=== PATIENT | female | born 1955 | race Caucasian/White ===

== ENCOUNTER 2020-07-15 09:13 | Outpatient (REF) | payer BC, SELFPAY ==
[2020-07-15 10:03] LABS: MANUAL DIFF FLAG NO
[2020-07-15 10:20] LABS: Basophils Percent Auto 0.4 % (0-2); Eosinophils Absolute Auto 0.2 X10*3/uL (0.0-0.4); Eosinophils Percent Auto 3.1 % (0-4); Hematocrit 39.5 % (37-47); Hemoglobin 13.3 g/dl (12.0-16.0); Imm Gran Abs Auto 0.01 X10*3/uL (0.00-0.03); Imm Gran Pct Auto 0.2 % (0.0-0.4); Immature Retic Fraction 7.5 % (3.0-15.9); Lymphocytes Absolute Auto 1.5 X10*3/uL (1.2-4.9); Lymphocytes Percent Auto 26.3 % (20-40); Mean Corpuscular HGB Conc 33.7 g/dl (31.0-35.0); Mean Corpuscular Volume 95.2 fL (80-98); Monocytes Absolute Auto 0.4 X10*3/uL (0.1-1.2); Monocytes Percent Auto 7.4 % (2-11); Neutrophils Absolute Auto 3.5 X10*3/uL (2.0-8.3); Neutrophils Percent Auto 62.6 % (45-73); Platelet Count 273 X10*3/uL (160-400); Red Blood Count 4.15 X10*6/uL (4.20-5.50); Red Cell Distribution Width 12.1 % (11.0-16.0); Retic HGB Equivalent 35.4 pg (30.0-35.0); Reticulocyte Percent 1.1 % (0.5-1.8); Reticulocytes Absolute 0.047 X10*6/uL (0.026-0.095); White Blood Count 5.5 X10*3/uL (4.8-10.8)
[2020-07-15 10:34] LABS: Estimated Average Glucose 114 mg/dL; Hemoglobin A1c % 5.6 %
[2020-07-15 11:03] LABS: Alanine Aminotransferase 37 U/L (0-31); Albumin Level 4.3 g/dL (3.5-5.0); Alkaline Phosphatase 54 U/L (39-117); Anion Gap 13 (12-20); Aspartate Amino Transferase 25 U/L (5-31); Bilirubin Total 1.7 mg/dL (0.0-1.0); Blood Urea Nitrogen 11 mg/dL (9-16); Calcium 9.3 mg/dL (8.4-10.2); Carbon Dioxide 29 mmol/L (22-29); Chloride 104 mmol/L (96-108); Cholesterol 221 mg/dL; Estimated Glomerular Filt Rate > 60; Glucose Random 106 mg/dL (60-115); HDL Cholesterol 46 mg/dL; Iron 122 mcg/dL (30-160); LDL Cholesterol Calculated 145 mg/dl; Percent Iron Saturation 51 % (15-50); Potassium 4.7 mmol/L (3.3-5.1); Sodium 141 mmol/L (135-145); Total Iron Binding Capacity 241 mcg/dL (228-428); Total Protein 6.7 g/dL (6.5-8.0); Triglycerides 154 mg/dL; Unsaturated Iron Binding 119 ug/dL
[2020-07-15 11:13] LABS: Ferritin 324 ng/mL (10-250); Free T4 (Free Thyroxine) 0.98 ng/dL (0.71-1.85); Thyroid Stimulating Hormone 1.72 uIU/mL (0.32-4.0); Vitamin D 25-OH Total 35.7 ng/mL (>30)
[2020-07-15 11:49] LABS: Folate > 20.0 ng/mL (> or = 4.0); Vitamin B12 960 pg/mL (200-900)
== END 2020-07-15 09:14 | disposition home or self-care (01) ==
LOC: HO.10HDL 09:13
PROVIDERS: Visit Provider Internal Medicine
DX: E80.6 Other disorders of bilirubin metabolism (principal); R73.02 Impaired glucose tolerance (oral); E78.00 Pure hypercholesterolemia, unspecified
CPT/HCPCS: 36415; 80053; 80061; 82306; 82607; 82728; 82746; 83036; 83540; 84439; 84443; 85025; 85045

== ENCOUNTER 2020-07-20 07:35 | Outpatient (REF) | payer BC, SELFPAY ==
--- NOTE | ~2020-07-20 | US_ITS ---
EXAMINATION: US ABDOMEN LIMITED CLINICAL INFORMATION: Other specified abnormal findings of blood chemistry. COMPARISON: None TECHNIQUE: Real-time imaging of the right upper quadrant abdominal viscera. FINDINGS: PANCREAS: Normal. LIVER: Liver echotexture is increased. The liver is normal in size. The liver contour is normal. No focal hepatic lesion. There is no intrahepatic biliary duct dilatation seen. GALLBLADDER: Normal. The gallbladder is physiologically distended without evidence of stones, sludge, polyps, wall thickening or pericholecystic fluid. COMMON BILE DUCT: Normal in caliber measuring 0.3 cm in diameter. RIGHT KIDNEY: Normal. No hydronephrosis. No renal calculi or focal parenchymal lesions. The kidney measures 10.7 cm in maximum dimension. FREE FLUID: None. US/US abdomen limited IMPRESSION: Echogenic liver. Otherwise unremarkable exam.
== END 2020-07-20 07:36 | disposition home or self-care (01) ==
LOC: HO.US 07:35
PROVIDERS: Visit Provider Internal Medicine
DX: E80.6 Other disorders of bilirubin metabolism (principal); R79.89 Other specified abnormal findings of blood chemistry
CPT/HCPCS: 76705

== ENCOUNTER 2020-11-27 08:19 | Emergency (ER) | payer BC, SELFPAY ==
--- NOTE | ~2020-11-27 | CT_ITS ---
EXAMINATION: CT ANGIOGRAM OF THE CHEST WITH AND WITHOUT CONTRAST (CT PULMONARY ANGIOGRAM FOR PE) CLINICAL INFORMATION: Reason for Exam elevated ddimer, COVID positive, dyspnea COMPARISON: None TECHNIQUE: Prior to contrast administration, noncontrast localization images were obtained. Subsequently, multidetector volumetric imaging was performed from the thoracic inlet to below the diaphragms following the administration of 80 mL Omnipaque 350 intravenous contrast. No contrast reaction reported Sagittal, coronal, and MIP oblique sagittal reformatted images were obtained on the CT workstation, uploaded to PACS, and reviewed. This CT examination was performed using dose optimization techniques as appropriate, variously including the following: *Automated exposure control *Adjustment of mA and/or kV according to patient size (this includes techniques or standardized protocols for targeted exams where dose is matched to indication/reason for exam; i.e. extremities or head) *Use of iterative reconstruction technique Total exam dose-length product 179 mGy-cm FINDINGS: QUALITY OF STUDY/CONTRAST BOLUS: Satisfactory. PULMONARY ARTERIES: No central or segmental pulmonary emboli. THORACIC AORTA: No aneurysm or dissection. LUNG: The lungs are well-expanded with bilateral patchy opacities in both upper lobes dependent segments and both lower lobes dependent segment suggestive of inflammatory or infectious etiology. No consolidation or nodules visualized. PLEURA: No pleural effusion or pneumothorax. MEDIASTINUM: The thyroid lobes are symmetric and normal. The central trachea and bronchi widely patent. No evidence of septal bowing or right heart strain. CHEST WALL/AXILLA: No axillary or internal mammary lymphadenopathy. OSSEOUS STRUCTURES: No lytic or sclerotic process seen. UPPER ABDOMEN: Visualized liver, spleen or partially visualized pancreas and bilateral adrenal glands are unremarkable. No reflux of contrast into the hepatic veins to suggest elevated right heart pressures. CT/CT angio chest PE protocol IMPRESSION: No evidence of PE. No evidence of aortic dissection. Diffuse groundglass changes in the dependent portions of both upper and lower lobe appears to inflammatory infectious etiology. No abnormal mediastinal lymphadenopathy. VTE: Negative
--- NOTE | ~2020-11-27 | XR_ITS ---
EXAMINATION: XR CHEST CLINICAL INFORMATION: Weakness COMPARISON: Chest 07/11/2007 TECHNIQUE: Frontal view of the chest was obtained. FINDINGS: The lungs are well-expanded with dense bandlike atelectasis right midlung. Rest lungs are clear and expanded. Heart size and pulmonary vascularity is normal. No gross bony abnormality seen. XR/XR chest 1V IMPRESSION: Dense atelectasis or scarring in right midlung. Rest of the lungs are clear.
--- NOTE | 2020-11-27 08:23 | ED_ITS ---
HPI - SOB/Dyspnea General Chief Complaint: Upper Respiratory Symptoms Stated Complaint: covid sob Time Seen by Provider: 11/27/20 08:22 Source: patient Mode of arrival: ambulatory Limitations: no limitations History of Present Illness HPI Narrative: 65 yo female denies any PMH comes in with 11 days of not feeling well after being exposed to her daughter and son in law who both tested positive for COVID. She states I just don't fell well, it's been long enough. Her main complaint is nausea and lack of appetite because nothing tastes good. Pertinent past history: other (COVID exposures) Onset (ago): day(s) (11) Context: other (COVID exposure) Timing: constant Severity: moderate Exacerbating factors: exertion (she can walk to her bathroom but she feels tired) Relieving factors: nothing Associated symptoms: cough, nausea/vomiting and other (malaise / anorexia) Treatment prior to arrival: none Related Data Home Medications Medication Instructions Recorded Confirmed Oscal PO 07/13/20 apple cider vinegar 300 mg tablet mg PO 07/13/20 07/13/20 ascorbate calcium (vitamin C) 500 500 mg PO DAILY 07/13/20 07/13/20 mg tablet coffee extract 400 mg capsule mg PO 07/13/20 07/13/20 (Green Coffee Horton) cyanocobalamin (vitamin B-12) 1,000 mcg PO DAILY 07/13/20 07/13/20 1,000 mcg capsule ferrous sulfate 325 mg (65 mg 325 mg PO DAILY 07/13/20 07/13/20 iron) tablet (Feosol) multivitamin (One-A-Day Essential) 1 tab PO DAILY 07/13/20 07/13/20 Previous Rx's Medication Instructions Recorded dexamethasone 6 mg tablet 6 mg PO DAILY 6 Days #6 tab 11/27/20 ondansetron 4 mg disintegrating 4 mg PO Q8H PRN #20 tab 11/27/20 tablet Allergies Allergy/AdvReac Type Severity Reaction Status Date / Time No Known Allergies Allergy Unverified 01/02/20 14:36 Review of Systems Review of Systems: Constitutional : No Weight loss, No Fever, No Chills, pos Fatigue, pos Malaise ENT/Mouth : No sore throat, No Rhinorrhea Eyes: No Eye Pain, No Swelling, No Redness Cardiovascular : No Chest Pain, No SOB, No Dyspnea on Exertion, No Orthopnea, No Edema, No Palpitations Respiratory : pos Cough, No Sputum, No Wheezing Gastrointestinal : pos Nausea, pos Vomiting, No Diarrhea, No Constipation, No abdominal Pain, No Hematochezia, No Melena Genitourinary : No Dysuria, No Urinary Frequency, No Hematuria, Musculoskeletal : No joint pain, No Myalgias, No Joint Swelling Skin : No Skin Lesions, No rash Neuro : pos Weakness, No Numbness, No Dizziness, No Headache Psych : No Anxiety/Panic, No Depression Heme/Lymph: No Bruising, No Bleeding,No Lymphadenopathy Endocrine : No Polyuria, No Polydipsia All other systems reviewed and are negative [facility] Past Medical History Attestation statement: The following information was validated with the patient. Medical History Fracture of distal end of fibula Hypercholesterolemia Impaired glucose tolerance Overweight Surgical History History of mandibular surgery Family History Family History (Updated 07/13/20 @ 09:07 by Katlyn Izquierdo CMA) Father No problems noted. Mother No problems noted. Brother Prostate cancer Social History Social History Alcohol intake: never Patient Tobacco Use Status: Never used Tobacco Use of substances other than those prescribed or required for medical reasons: No Advance Directives: No Advance Directives Information Provided: No Physical Exam Vital Signs: Vital Signs: Last Vital Signs Temp 98.0 F 11/27/20 13:07 Pulse 60 11/27/20 13:07 Resp 15 11/27/20 13:07 BP 114/67 11/27/20 13:07 Pulse Ox 94 11/27/20 13:07 Body Mass Index 26.4 Appearance: Alert. Oriented X3. No acute distress. Eyes: Pupils equal, round and reactive to light. ENT: Pharynx normal. Neck: Normal inspection. Neck supple. CVS: Normal heart rate and rhythm. Pulses normal. Respiratory: No respiratory distress. Breath sounds normal. Abdomen: Soft and nontender. Skin: Skin warm and dry. Normal skin color. Normal skin turgor. Extremities: No lower extremity edema. No calf ttp Neuro: Oriented X 3. No motor deficit. No sensory deficit. Course Course Course Narrative: + ddimer higher than expected CTA ordered no PE will attempt ambulation trial no hypoxia O2 sat ambulating was 96%, she is eating in the department, no supplemental O2 can be DC home MDM - SOB/Dyspnea MDM Narrative Medical decision making narrative: 65 yo female denies any PMH comes in with 11 days of not feeling well after being exposed to her daughter and son in law who both tested positive for COVID. At this time her O2 sat ranges from 92-95% on RA. She has no complaints of chest pain will obtain COVID risk labs, CXR. Seems atypical for PE given lack of chest pain. Will need ambulation trial as well. Patient was not vaccinated. Lab Data Result diagrams: 11/27/20 09:23 11/27/20 09:23 Labs: Lab Results 11/27/20 11/27/20 11/27/20 Range/Units 09:22 09:23 09:23 WBC 6.4 (4.8-10.8) X10*3/uL RBC 4.12 L (4.20-5.50) X10*6/uL Hgb 13.1 (12.0-16.0) g/dl Hct 37.5 (37-47) % MCV 91.0 (80-98) fL MCH 31.8 (27.0-33.0) pg MCHC 34.9 (31.0-35.0) g/dl RDW 12.4 (11.0-16.0) % Plt Count 261 (160-400) X10*3/uL MPV 11.7 (9.4-12.3) fL Immature Gran % (Auto) 0.5 H (0.0-0.4) % Neut % (Auto) 86.3 H (45-73) % Lymph % (Auto) 8.6 L (20-40) % Porter % (Auto) 4.6 (2-11) % Eos % (Auto) 0.0 (0-4) % Baso % (Auto) 0.0 (0-2) % Lymph # (Auto) 0.6 L (1.2-4.9) X10*3/uL Porter # (Auto) 0.3 (0.1-1.2) X10*3/uL Eos # (Auto) 0.0 (0.0-0.4) X10*3/uL Baso # (Auto) 0.0 (0.0-0.2) X10*3/uL Abs Immat Gran (auto) 0.03 (0.00-0.03) X10*3/uL Absolute Neuts (auto) 5.5 (2.0-8.3) X10*3/uL Absolute Nucleated RBC 0.000 (0.0-0.012) X10*3/uL Nucleated RBC % (auto) 0.0 (0.0-0.2) /100WBC PT (9.9-13.0) SEC INR (0.9-1.1) APTT (24.1-38.0) SEC D-Dimer NG/ML Sodium 133 L (135-145) mmol/L Potassium 4.6 (3.3-5.1) mmol/L Chloride 98 (96-108) mmol/L Carbon Dioxide 25 (22-29) mmol/L Anion Gap 15 (12-20) BUN 13 (9-16) mg/dL Creatinine 0.67 (0.5-1.4) mg/dL Estim Creat Clear Calc 81.0 Estimated GFR > 60 Random Glucose 106 (60-115) mg/dL Lactic Acid (0.5-2.0) mmol/L Calcium 8.5 D (8.4-10.2) mg/dL Magnesium (1.6-2.6) mg/dL Ferritin (10-250) ng/mL Total Bilirubin (0.0-1.0) mg/dL Direct Bilirubin (0.0-0.5) mg/dL AST (5-31) U/L ALT (0-31) U/L Alkaline Phosphatase (39-117) U/L Lactate Dehydrogenase (122-220) U/L Total Creatine Kinase 38 (26-140) U/L Troponin I High Sens 7.3 (<3.5-17.0) ng/L C-Reactive Protein 7.74 H (< or = 0.50) mg/dL Total Protein (6.5-8.0) g/dL Albumin (3.5-5.0) g/dL COVID-19 (FRANKIE) (Negative) COVID-19 Clin Com 11/27/20 11/27/20 11/27/20 Range/Units 09:23 09:23 09:23 WBC (4.8-10.8) X10*3/uL RBC (4.20-5.50) X10*6/uL Hgb (12.0-16.0) g/dl Hct (37-47) % MCV (80-98) fL MCH (27.0-33.0) pg MCHC (31.0-35.0) g/dl RDW (11.0-16.0) % Plt Count (160-400) X10*3/uL MPV (9.4-12.3) fL Immature Gran % (Auto) (0.0-0.4) % Neut % (Auto) (45-73) % Lymph % (Auto) (20-40) % Porter % (Auto) (2-11) % Eos % (Auto) (0-4) % Baso % (Auto) (0-2) % Lymph # (Auto) (1.2-4.9) X10*3/uL Porter # (Auto) (0.1-1.2) X10*3/uL Eos # (Auto) (0.0-0.4) X10*3/uL Baso # (Auto) (0.0-0.2) X10*3/uL Abs Immat Gran (auto) (0.00-0.03) X10*3/uL Absolute Neuts (auto) (2.0-8.3) X10*3/uL Absolute Nucleated RBC (0.0-0.012) X10*3/uL Nucleated RBC % (auto) (0.0-0.2) /100WBC PT 12.0 (9.9-13.0) SEC INR 1.1 (0.9-1.1) APTT 29.4 (24.1-38.0) SEC D-Dimer 725 NG/ML Sodium (135-145) mmol/L Potassium (3.3-5.1) mmol/L Chloride (96-108) mmol/L Carbon Dioxide (22-29) mmol/L Anion Gap (12-20) BUN (9-16) mg/dL Creatinine (0.5-1.4) mg/dL Estim Creat Clear Calc Estimated GFR Random Glucose (60-115) mg/dL Lactic Acid 1.8 (0.5-2.0) mmol/L Calcium (8.4-10.2) mg/dL Magnesium 2.1 (1.6-2.6) mg/dL Ferritin 2171 H (10-250) ng/mL Total Bilirubin 1.0 (0.0-1.0) mg/dL Direct Bilirubin 0.5 (0.0-0.5) mg/dL AST 33 H (5-31) U/L ALT 42 H (0-31) U/L Alkaline Phosphatase 78 D (39-117) U/L Lactate Dehydrogenase 276 H (122-220) U/L Total Creatine Kinase (26-140) U/L Troponin I High Sens (<3.5-17.0) ng/L C-Reactive Protein (< or = 0.50) mg/dL Total Protein 6.5 (6.5-8.0) g/dL Albumin 3.9 (3.5-5.0) g/dL COVID-19 (FRANKIE) (Negative) COVID-19 Clin Com 11/27/20 Range/Units 09:25 WBC (4.8-10.8) X10*3/uL RBC (4.20-5.50) X10*6/uL Hgb (12.0-16.0) g/dl Hct (37-47) % MCV (80-98) fL MCH (27.0-33.0) pg MCHC (31.0-35.0) g/dl RDW (11.0-16.0) % Plt Count (160-400) X10*3/uL MPV (9.4-12.3) fL Immature Gran % (Auto) (0.0-0.4) % Neut % (Auto) (45-73) % Lymph % (Auto) (20-40) % Porter % (Auto) (2-11) % Eos % (Auto) (0-4) % Baso % (Auto) (0-2) % Lymph # (Auto) (1.2-4.9) X10*3/uL Porter # (Auto) (0.1-1.2) X10*3/uL Eos # (Auto) (0.0-0.4) X10*3/uL Baso # (Auto) (0.0-0.2) X10*3/uL Abs Immat Gran (auto) (0.00-0.03) X10*3/uL Absolute Neuts (auto) (2.0-8.3) X10*3/uL Absolute Nucleated RBC (0.0-0.012) X10*3/uL Nucleated RBC % (auto) (0.0-0.2) /100WBC PT (9.9-13.0) SEC INR (0.9-1.1) APTT (24.1-38.0) SEC D-Dimer NG/ML Sodium (135-145) mmol/L Potassium (3.3-5.1) mmol/L Chloride (96-108) mmol/L Carbon Dioxide (22-29) mmol/L Anion Gap (12-20) BUN (9-16) mg/dL Creatinine (0.5-1.4) mg/dL Estim Creat Clear Calc Estimated GFR Random Glucose (60-115) mg/dL Lactic Acid (0.5-2.0) mmol/L Calcium (8.4-10.2) mg/dL Magnesium (1.6-2.6) mg/dL Ferritin (10-250) ng/mL Total Bilirubin (0.0-1.0) mg/dL Direct Bilirubin (0.0-0.5) mg/dL AST (5-31) U/L ALT (0-31) U/L Alkaline Phosphatase (39-117) U/L Lactate Dehydrogenase (122-220) U/L Total Creatine Kinase (26-140) U/L Troponin I High Sens (<3.5-17.0) ng/L C-Reactive Protein (< or = 0.50) mg/dL Total Protein (6.5-8.0) g/dL Albumin (3.5-5.0) g/dL COVID-19 (FRANKIE) Positive A (Negative) COVID-19 Clin Com See Note ECG Data Attestation: I personally reviewed and interpreted this ECG as follows: ECG interpretation date: 11/27/20 ECG interpretation time: 09:52 Interpretation: Rate: 70 Rhythm: NSR [place]: left, LVH Normal P waves. Normal DERRICK. Normal QRS complex. ST T wave : nonspecific, no LOIDA qTC: normal prior studies: no acute ischemia The study has been interpreted contemporaneously by me. . Discharge Plan Discharge Clinical Impression: COVID-19, Weakness Patient Disposition: Home, Self-Care Instructions: COVID-19 (Coronavirus Disease 2019) (ED) Additional Instructions: return to ED for any worsening symptoms or concerns wear a mask and quarantine yourself, if you become so short of breath you cannot ambulate to the bathroom please return your CT scan shows no blood clot, you have some patchy areas in your lungs with COVID disease but your walking room air O2 level was 96%, please monitor your breathing Prescriptions: New ondansetron 4 mg tablet,disintegrating 4 mg PO Q8H PRN (Reason: nausea and vomiting) Qty: 20 RF: 0 dexamethasone 6 mg tablet 6 mg PO DAILY 6 Days Qty: 6 RF: 0 No Action ascorbate calcium (vitamin C) 500 mg tablet 500 mg PO DAILY RF: 0 ferrous sulfate [Feosol] 325 mg (65 mg iron) tablet 325 mg PO DAILY RF: 0 multivitamin [One-A-Day Essential] Tablet 1 tab PO DAILY RF: 0 cyanocobalamin (vitamin B-12) 1,000 mcg capsule 1,000 mcg PO DAILY RF: 0 Oscal PO RF: 0 Green Coffee Horton 400 mg capsule PO RF: 0 apple cider vinegar 300 mg tablet PO RF: 0
[2020-11-27 08:44] VITALS: BP 135/71; PULSE 71; RESP 18; TEMP 37.9; O2SAT 94; BMI 26.4
--- NOTE | 2020-11-27 08:50 | ECG_ITS ---
Test Reason : N/V Blood Pressure : / mmHG Vent. Rate : 070 BPM Atrial Rate : 070 BPM P-R Int : 168 ms QRS Dur : 086 ms QT Int : 396 ms P-R-T Axes : 031 -12 000 degrees QTc Int : 427 ms Normal sinus rhythm Voltage criteria for left ventricular hypertrophy Abnormal ECG No previous ECGs available Referred By: Sophie Blanc Electronically Signed By:JIMMIE ZUNIGA
[2020-11-27 08:55] VITALS: PULSE 76; O2SAT 92
[2020-11-27 08:59] VITALS: BP 143/71; PULSE 73; RESP 24; O2SAT 94
[2020-11-27 09:33] LABS: MANUAL DIFF FLAG NO
[2020-11-27 09:34] LABS: Hematocrit 37.5 % (37-47); Hemoglobin 13.1 g/dl (12.0-16.0); Imm Gran Abs Auto 0.03 X10*3/uL (0.00-0.03); Imm Gran Pct Auto 0.5 % (0.0-0.4); Lymphocytes Absolute Auto 0.6 X10*3/uL (1.2-4.9); Lymphocytes Percent Auto 8.6 % (20-40); Mean Corpuscular HGB Conc 34.9 g/dl (31.0-35.0); Mean Corpuscular Hemoglobin 31.8 pg (27.0-33.0); Mean Platelet Volume 11.7 fL (9.4-12.3); Monocytes Absolute Auto 0.3 X10*3/uL (0.1-1.2); Monocytes Percent Auto 4.6 % (2-11); Neutrophils Absolute Auto 5.5 X10*3/uL (2.0-8.3); Neutrophils Percent Auto 86.3 % (45-73); Platelet Count 261 X10*3/uL (160-400); Red Blood Count 4.12 X10*6/uL (4.20-5.50); Red Cell Distribution Width 12.4 % (11.0-16.0); White Blood Count 6.4 X10*3/uL (4.8-10.8)
[2020-11-27 09:39] LABS: INTERNATIONAL NORM RATIO 1.1 (0.9-1.1)
[2020-11-27 09:42] LABS: D Dimer 725 NG/ML; Partial Thromboplastin Time 29.4 SEC (24.1-38.0)
[2020-11-27 09:43] VITALS: BP 124/66; PULSE 70; RESP 22; TEMP 38.1; O2SAT 94
[2020-11-27 09:43] LABS: COVID-19 Test Positive (Negative)
[2020-11-27] MEDS: Acetaminophen 325 MG TABLET 650 MG PO (09:44)
[2020-11-27] MEDS: ondansetron HCL 4 MG/2 ML VIAL IVPUSH (09:44)
[2020-11-27 09:52] LABS: Lactic Acid 1.8 mmol/L (0.5-2.0)
[2020-11-27 09:59] LABS: Alanine Aminotransferase 42 U/L (0-31); Albumin Level 3.9 g/dL (3.5-5.0); Alkaline Phosphatase 78 U/L (39-117); Aspartate Amino Transferase 33 U/L (5-31); Bilirubin Direct 0.5 mg/dL (0.0-0.5); Magnesium 2.1 mg/dL (1.6-2.6); Total Protein 6.5 g/dL (6.5-8.0)
[2020-11-27 10:01] LABS: Anion Gap 15 (12-20); Blood Urea Nitrogen 13 mg/dL (9-16); C Reactive Protein 7.74 mg/dL (< or = 0.50); Calcium 8.5 mg/dL (8.4-10.2); Carbon Dioxide 25 mmol/L (22-29); Chloride 98 mmol/L (96-108); Estimated Glomerular Filt Rate > 60; Glucose Random 106 mg/dL (60-115); Potassium 4.6 mmol/L (3.3-5.1); Sodium 133 mmol/L (135-145)
[2020-11-27 10:02] LABS: Troponin-I High Sensitivity 7.3 ng/L (<3.5-17.0)
[2020-11-27 10:04] LABS: Lactate Dehydrogenase 276 U/L (122-220)
[2020-11-27 10:50] VITALS: BP 113/60; PULSE 66; RESP 19; TEMP 37.4; O2SAT 93
[2020-11-27 11:00] LABS: Ferritin 2171 ng/mL (10-250)
[2020-11-27] MEDS: iohexoL 350 MG/ML 100 ML INFUS..BTL 65 ML IV (12:30)
[2020-11-27] MEDS: iohexoL 350 MG/ML 100 ML INFUS..BTL IV (12:37)
[2020-11-27 13:07] VITALS: BP 114/67; PULSE 60; RESP 15; TEMP 36.7; O2SAT 94
[2020-11-27] MEDS: dexAMETHasone 6 MG TABLET PO (13:52)
[2020-11-28 07:14] LABS: Procalcitonin < 0.05 ng/mL
== END 2020-11-27 14:07 | disposition home or self-care (01) ==
PROVIDERS: Emergency Provider Emergency Medicine; PCP Internal Medicine
DX: U07.1 COVID-19 (principal); R53.1 Weakness; R05 Cough; Z79.899 Other long term (current) drug therapy
CPT/HCPCS: 36415; 71045; 71275; 80048; 80076; 82550; 82728; 83605; 83615; 83735; 84145; 84484; 85025; 85379; 85610; 85730; 86140; 87040; 87147; 87205; 87635; 93005; 96374; 99285; J2405; J8540; Q9967

== ENCOUNTER 2020-11-28 12:16 | Emergency (ER) | payer BC, SELFPAY ==
[2020-11-28 12:23] VITALS: BP 139/64; PULSE 68; RESP 16; TEMP 37.1; O2SAT 97; BMI 25.8
[2020-11-28 13:07] VITALS: BP 118/57; PULSE 68; RESP 16; TEMP 37.1; O2SAT 96
--- NOTE | 2020-11-28 13:16 | PC.NURSE ---
pt alert and oriented x3. Pt was seen here in the ed yesterday, tested positive for covid and was called back to ed for blood culture recheck. Pt c/o of full body ache, non-productive cough with chest discomfort when she coughs. Pt is actively coughing., sob with exertion. c/o nausea and diarrhea. Pt states she has not had covid vaccine and other members of her household have recently tested positive for covid. pt in no apparent distress, awaiting labs.
--- NOTE | 2020-11-28 13:37 | ED_ITS ---
HPI - Recheck/Abnormal Lab/Rx General Chief Complaint: Recheck/Abnormal Lab/Rx Stated Complaint: abdnormal labs Time Seen by Provider: 11/28/20 12:39 Source: patient Mode of arrival: ambulatory Limitations: no limitations History of Present Illness HPI narrative: 65-year-old female who tested positive for COVID yesterday, and has had symptoms for 12 days, presents to our ED for a positive blood culture that was taken when she was seen in the emergency room yesterday. One out of 2 bottles showed gram positive cocci in clusters. Patient has had COVID exposure, 12 days of nausea, cough, anorexia, malaise, loss of taste. In the emergency room yesterday, patient had a CTA that showed ground-glass opacities in both her upper and lower lobes. She was given ondansetron and dexamethasone, which she has been taking, but she was advised that might take 3 days for her to feel better. She is not feeling better today, however she is no worse, no chest pain, no shortness of breath, reports she would not be here except that she was called to return for the positive blood culture. complaint: abnormal lab Initial visit (ago): day(s) (1) Initial visit for: other (Covid/URI) Returns today for: called because of abnormal lab/test Description of abnormal result: 1out of 2 blood culture showed Gram-positive cocci in clusters Symptoms since prior visit: no new symptoms Context: called for abnormal lab result Associated symptoms: nausea and other (cough) Related Data Home Medications Medication Instructions Recorded Confirmed Oscal PO 07/13/20 apple cider vinegar 300 mg tablet mg PO 07/13/20 07/13/20 ascorbate calcium (vitamin C) 500 500 mg PO DAILY 07/13/20 07/13/20 mg tablet coffee extract 400 mg capsule mg PO 07/13/20 07/13/20 (Green Coffee Horton) cyanocobalamin (vitamin B-12) 1,000 mcg PO DAILY 07/13/20 07/13/20 1,000 mcg capsule ferrous sulfate 325 mg (65 mg 325 mg PO DAILY 07/13/20 07/13/20 iron) tablet (Feosol) multivitamin (One-A-Day Essential) 1 tab PO DAILY 07/13/20 07/13/20 Previous Rx's Medication Instructions Recorded dexamethasone 6 mg tablet 6 mg PO DAILY 6 Days #6 tab 11/27/20 ondansetron 4 mg disintegrating 4 mg PO Q8H PRN #20 tab 11/27/20 tablet albuterol sulfate 90 mcg/actuation 2 puff INHALATION Q4-6H PRN #8.5 g 11/28/20 aerosol inhaler Allergies Allergy/AdvReac Type Severity Reaction Status Date / Time No Known Allergies Allergy Verified 11/28/20 12:26 Review of Systems Constitutional: Constitutional: Reports body ache(s), Denies chills, Reports fatigue, Denies fever(s), Reports headache(s), Reports malaise and Reports poor appetite Eyes: Eyes: Denies blurry vision, Denies diplopia and Denies eye pain ENT: Denies vertigo, Denies dizziness, Denies otalgia, Reports headache(s), Reports nasal discharge, Reports post nasal drip and Denies sore throat Cardiovascular: Cardiovascular: Denies chest pain, Denies syncope, Denies palpitations and Denies dyspnea Respiratory: Respiratory: Reports cough, Denies pain with cough, Denies dyspnea and Denies wheezing Gastrointestinal: Gastrointestinal: Denies hematochezia, Denies coffee ground emesis, Reports diarrhea, Reports nausea and Denies vomiting Genitourinary: Genitourinary: Reports no additional female genitourinary complaints Musculoskeletal: Musculoskeletal: Reports myalgias Integumentary/Breasts: Skin/Breast: Denies rash Neurologic: Denies vertigo, Denies dizziness, Denies syncope and Reports headache(s) Endocrine: Endocrine: Reports fatigue and Denies palpitations Allergic/Immunologic: Allergic/Immunologic: Denies wheezing PMFSH Past Medical History Medical History Fracture of distal end of fibula Hypercholesterolemia Impaired glucose tolerance Overweight Surgical History History of mandibular surgery Family History Family History (Updated 07/13/20 @ 09:07 by Katlyn Izquierdo CMA) Father No problems noted. Mother No problems noted. Brother Prostate cancer Social History Social History Alcohol intake: never Patient Tobacco Use Status: Never used Tobacco Use of substances other than those prescribed or required for medical reasons: No Advance Directives: No Advance Directives Information Provided: Yes Physical Exam Vital Signs: Vital Signs: Last Vital Signs Temp 98.8 F 11/28/20 13:07 Pulse 68 11/28/20 13:07 Resp 16 11/28/20 13:07 BP 118/57 L 11/28/20 13:07 Pulse Ox 96 11/28/20 13:07 Body Mass Index 25.8 Const: General: cooperative, no acute distress, well developed, alert and awake Nutritional Appearance: well nourished Orientation/consciousness: patient oriented x3 Limitations: no limitations HENMT: Head: Yes normal to inspection, Yes normocephalic and Yes atraumatic Ears: hearing grossly normal bilaterally and external ears normal Face and sinus: Yes normal facial exam Mouth: Normal oral and palatal mucosa present Throat: Yes posterior oropharynx normal Eyes: Conjunctivae: conjunctivae normal Pupils: Equal, round and reactive pupils present EOM: EOMs intact bilaterally Neck: Neck: Yes full ROM, Yes no lymphadenopathy and Yes supple Resp: Other: Lung sounds mildly diminished throughout Effort & Inspection: normal respiratory effort and able to speak in complete sentences Auscultation: no crackles, no rales, no rhonchi and no wheezes Cardio: Rate: regular rate Rhythm: regular rhythm Heart sounds: S1 normal heart sound present and S2 normal heart sound present GI: Inspection: Yes normal to inspection Palpation (GI): Soft to palpation, nontender, no guarding and not rigid Percussion: Yes normal to percussion Auscultation: normal bowel sounds Skin: General skin exam: no rashes or lesions noted Neuro: General: patient oriented x3, tone normal and moves all extremities Cranial nerves: Yes Equal, round and reactive pupils present Extrem: General: Yes normal to inspection and Yes full ROM Psych: Appearance: grossly normal Affect: normal affect Attitude: field marketing coordinator perative Thought process: Normal thought process present Course Course Course Narrative: 65-year-old female who has had 12 days of cough, nausea, malaise, body aches, and who tested positive for COVID yesterday, presents today because she was called from the emergency room to return for positive blood culture. 1 out of 2 bottles showed Gram-positive cocci in clusters. Patient is not feeling better from yesterday, when she is not feeling any worse. On exam, patient has mildly diminished lungs, it is little no wheezes or crackles appreciated. Patient has a benign abdominal exam. Patient is hydrated. Vital signs are stable, patient is afebrile, satting 96% on room air. Discussed positive blood culture with Dr Garsia, who thought we should get lactate, repeat blood culture, verification was no worse and was well appearing, with no hypoxia, she could be sent home. Beginning lactate, repeat blood culture, basic labs, ordered her dexamethasone and albuterol. Plan for a trial of ambulation. Patient's oxygen saturation was 91 on ambulation, and when I was in the room wi th her her resting oxygen saturation was 95% We discussed admission, patient would like to go home. Counseled her that if her oxygen saturation dropped below 88%, she had worsening chest pain or shortness of breath, she should return to the emergency room. Also discussed that she will get a call about her repeat blood cultures, and if they are positive, she must return to emergency room immewdiately Patient has a pulse oximeter machine which she can use at home. MDM - Recheck/Abnormal Lab/Rx Lab Data Result diagrams: 11/28/20 13:57 11/28/20 13:57 Labs: Lab Results 11/28/20 11/28/20 11/28/20 Range/Units 13:57 13:57 13:57 WBC 10.1 (4.8-10.8) X10*3/uL RBC 4.15 L (4.20-5.50) X10*6/uL Hgb 13.2 (12.0-16.0) g/dl Hct 37.8 (37-47) % MCV 91.1 (80-98) fL MCH 31.8 (27.0-33.0) pg MCHC 34.9 (31.0-35.0) g/dl RDW 12.5 (11.0-16.0) % Plt Count 313 (160-400) X10*3/uL MPV 11.4 (9.4-12.3) fL Immature Gran % (Auto) 0.4 (0.0-0.4) % Neut % (Auto) 88.2 H (45-73) % Lymph % (Auto) 6.4 L (20-40) % Fisher % (Auto) 4.8 (2-11) % Eos % (Auto) 0.1 (0-4) % Baso % (Auto) 0.1 (0-2) % Lymph # (Auto) 0.6 L (1.2-4.9) X10*3/uL Fisher # (Auto) 0.5 (0.1-1.2) X10*3/uL Eos # (Auto) 0.0 (0.0-0.4) X10*3/uL Baso # (Auto) 0.0 (0.0-0.2) X10*3/uL Abs Immat Gran (auto) 0.04 H (0.00-0.03) X10*3/uL Absolute Neuts (auto) 8.9 H (2.0-8.3) X10*3/uL Absolute Nucleated RBC 0.000 (0.0-0.012) X10*3/uL Nucleated RBC % (auto) 0.0 (0.0-0.2) /100WBC Sodium 133 L (135-145) mmol/L Potassium 4.7 (3.3-5.1) mmol/L Chloride 99 (96-108) mmol/L Carbon Dioxide 23 (22-29) mmol/L Anion Gap 16 (12-20) BUN 16 (9-16) mg/dL Creatinine 0.74 (0.5-1.4) mg/dL Estim Creat Clear Calc 75.2 Estimated GFR > 60 Random Glucose 96 (60-115) mg/dL Lactic Acid 1.3 (0.5-2.0) mmol/L Calcium 8.9 (8.4-10.2) mg/dL Total Bilirubin 1.1 H (0.0-1.0) mg/dL AST 25 (5-31) U/L ALT 36 H (0-31) U/L Alkaline Phosphatase 74 (39-117) U/L Total Protein 6.6 (6.5-8.0) g/dL Albumin 3.8 (3.5-5.0) g/dL Discharge Plan Discharge Clinical Impression: COVID-19, Abnormal laboratory test result Patient Disposition: Home, Self-Care Instructions: COVID-19 (Coronavirus Disease 2019) (ED) Additional Instructions: Please send the prescription for the albuterol inhaler that I gave you. Please use 2 puffs every [address] Please continue taking your anti nausea medication and the dexamethasone. Please return to the emergency room if you feel worse, if you have worsening shortness of breath, chest pain, fevers, or if your oxygen saturation only on the pulse oximeter machine that your daughter has is 88% or below. We will call you if your repeat blood cultures come back positive. Prescriptions: New albuterol sulfate 90 mcg/actuation HFA aerosol inhaler 2 puff inhalation Q4-6H PRN (Reason: shortness of breath or wheezing) Qty: 8.5 RF: 0 No Action ondansetron 4 mg tablet,disintegrating 4 mg PO Q8H PRN (Reason: nausea and vomiting) Qty: 20 RF: 0 dexamethasone 6 mg tablet 6 mg PO DAILY 6 Days Qty: 6 RF: 0 ascorbate calcium (vitamin C) 500 mg tablet 500 mg PO DAILY RF: 0 ferrous sulfate [Feosol] 325 mg (65 mg iron) tablet 325 mg PO DAILY RF: 0 multivitamin [One-A-Day Essential] Tablet 1 tab PO DAILY RF: 0 cyanocobalamin (vitamin B-12) 1,000 mcg capsule 1,000 mcg PO DAILY RF: 0 Oscal PO RF: 0 Green Coffee Horton 400 mg capsule PO RF: 0 apple cider vinegar 300 mg tablet PO RF: 0
--- NOTE | 2020-11-28 14:00 | PC.NURSE ---
Pt's O2 sat fluctuating 90-91% R/A while laying in bed, DG Araujo made aware by this loan underwriter. No c/o sob with rest. no difficulty breathing. She continues with non-productive cough. meds given as documented. Pt asking to go home now. this loan underwriter will follow-up with Gayle.
[2020-11-28 14:04] LABS: MANUAL DIFF FLAG NO
[2020-11-28] MEDS: Albuterol Sulfate 90 MCG 8 GM INHALER 4 PUFF INHALE (14:04)
[2020-11-28] MEDS: dexAMETHasone 6 MG TABLET PO (14:04)
[2020-11-28 14:06] LABS: Basophils Percent Auto 0.1 % (0-2); Eosinophils Percent Auto 0.1 % (0-4); Hematocrit 37.8 % (37-47); Hemoglobin 13.2 g/dl (12.0-16.0); Imm Gran Abs Auto 0.04 X10*3/uL (0.00-0.03); Imm Gran Pct Auto 0.4 % (0.0-0.4); Lymphocytes Absolute Auto 0.6 X10*3/uL (1.2-4.9); Lymphocytes Percent Auto 6.4 % (20-40); Mean Corpuscular HGB Conc 34.9 g/dl (31.0-35.0); Mean Corpuscular Hemoglobin 31.8 pg (27.0-33.0); Mean Corpuscular Volume 91.1 fL (80-98); Mean Platelet Volume 11.4 fL (9.4-12.3); Monocytes Absolute Auto 0.5 X10*3/uL (0.1-1.2); Monocytes Percent Auto 4.8 % (2-11); Neutrophils Absolute Auto 8.9 X10*3/uL (2.0-8.3); Neutrophils Percent Auto 88.2 % (45-73); Platelet Count 313 X10*3/uL (160-400); Red Blood Count 4.15 X10*6/uL (4.20-5.50); Red Cell Distribution Width 12.5 % (11.0-16.0); White Blood Count 10.1 X10*3/uL (4.8-10.8)
[2020-11-28 14:22] LABS: Lactic Acid 1.3 mmol/L (0.5-2.0)
[2020-11-28 14:27] LABS: Alanine Aminotransferase 36 U/L (0-31); Albumin Level 3.8 g/dL (3.5-5.0); Alkaline Phosphatase 74 U/L (39-117); Anion Gap 16 (12-20); Aspartate Amino Transferase 25 U/L (5-31); Bilirubin Total 1.1 mg/dL (0.0-1.0); Blood Urea Nitrogen 16 mg/dL (9-16); Calcium 8.9 mg/dL (8.4-10.2); Carbon Dioxide 23 mmol/L (22-29); Chloride 99 mmol/L (96-108); Creatinine Clr Calc Pharmacy 75.2; Estimated Glomerular Filt Rate > 60; Glucose Random 96 mg/dL (60-115); Potassium 4.7 mmol/L (3.3-5.1); Sodium 133 mmol/L (135-145); Total Protein 6.6 g/dL (6.5-8.0)
--- NOTE | 2020-11-28 15:00 | PC.NURSE ---
Pt up to ambulate with this machine sign writer. O2 sat monitored while ambulating. Pt satting 90-91% R/A, she denies sob/difficulty breathing. Pt asking to go home stating she will be ok and will monitor her oxygen level at home because she has a pulse oximeter at home. DG Araujo made aware.
== END 2020-11-28 16:31 | disposition home or self-care (01) ==
PROVIDERS: Physician Assistant; Emergency Provider Emergency Medicine; PCP Internal Medicine
DX: U07.1 COVID-19 (principal); R79.9 Abnormal finding of blood chemistry, unspecified
CPT/HCPCS: 36415; 80053; 83605; 85025; 87040; 87147; 87205; 99284; J8540

== ENCOUNTER 2022-07-20 08:05 | Outpatient (REF) | payer BC, SELFPAY ==
[2022-07-20 10:49] LABS: MANUAL DIFF FLAG NO
[2022-07-20 11:06] LABS: Basophils Percent Auto 0.3 % (0-2); Eosinophils Absolute Auto 0.2 X10*3/uL (0.0-0.4); Eosinophils Percent Auto 2.1 % (0-4); Hematocrit 38.2 % (37.0-47.0); Hemoglobin 12.9 g/dl (12.0-16.0); Imm Gran Abs Auto 0.02 X10*3/uL (0.00-0.03); Imm Gran Pct Auto 0.2 % (0.0-0.4); Lymphocytes Absolute Auto 1.5 X10*3/uL (1.2-4.9); Lymphocytes Percent Auto 15.3 % (20-40); Mean Corpuscular HGB Conc 33.8 g/dl (31.0-35.0); Mean Corpuscular Volume 94.8 fL (80.0-98.0); Mean Platelet Volume 12.4 fL (9.4-12.3); Monocytes Absolute Auto 0.7 X10*3/uL (0.1-1.2); Monocytes Percent Auto 6.7 % (2-11); Neutrophils Absolute Auto 7.5 x10*3/uL (2.0-8.3); Neutrophils Percent Auto 75.4 % (45-73); Platelet Count 283 X10*3/uL (160-400); Red Blood Count 4.03 X10*6/uL (4.20-5.50); Red Cell Distribution Width 11.9 % (11.0-16.0); White Blood Count 9.9 X10*3/uL (4.8-10.8)
[2022-07-20 11:29] LABS: Cholesterol 196 mg/dL; HDL Cholesterol 47 mg/dL; LDL Cholesterol Calculated 118 mg/dl; Triglycerides 158 mg/dL
[2022-07-20 11:59] LABS: Folate 16.4 ng/mL (> or = 4.0); Free T4 (Free Thyroxine) 0.96 ng/dL (0.71-1.85); Thyroid Stimulating Hormone 1.58 uIU/mL (0.32-4.0); Vitamin B12 877 pg/mL (200-900); Vitamin D 25-OH Total 40.9 ng/mL (>30)
== END 2022-07-20 08:06 | disposition home or self-care (01) ==
LOC: HO.10HDL 08:05
PROVIDERS: Visit Provider Internal Medicine
DX: R73.02 Impaired glucose tolerance (oral) (principal); E78.00 Pure hypercholesterolemia, unspecified; E55.9 Vitamin D deficiency, unspecified
CPT/HCPCS: 36415; 80061; 82306; 82607; 82746; 84439; 84443; 85025

== ENCOUNTER 2023-11-02 08:51 | Outpatient (AMB) | payer BC, SELFPAY ==
--- NOTE | 2023-11-02 08:51 | A.OFFPC_ITS ---
Intake Visit Reasons: Wet Cough for 3 weeks Allergies No Known Allergies Allergy (Verified 11/02/23 08:51) Tobacco use date assessed: 11/02/23 Fall risk assessment: No Falls in past year Last assessed Fall Risk: 11/02/23 Dental Screening Dental Screen Date: 11/02/23 Did you have a dental visit in the last 12 months?: Yes Did you have a dental problem in the last 6 months where you did not have access to dental care?: No Was dental information given to patient?: Patient has dentist HPI Wet Cough for 3 weeks HPI Details 68-year-old overweight female with a his tory of hypercholesterolemia impaired glucose tolerance calling in through Telehealth for an acute problem last seen in 08/04/2022.taking care of granddaughter who were sick. coughing , nasal congestion, dayquil, nyquil. states sore throat. aleve sinus and cold. mades dizzy, so took cough syrup OTC- still coughing. 1 month. . Already but patient feels fine not short of breath no fevers no bowel bladder symptoms no shortness a breath. [facility] Medical History (Updated 11/02/23 @ 09:03 by Shawn Hassan MD) Impaired glucose tolerance Fracture of distal end of fibula Hypercholesterolemia Overweight Surgical History History of mandibular surgery Family History (Updated 07/19/22 @ 08:46 by Katlyn Izquierdo CMA) Father No problems noted. Mother No problems noted. Brother Prostate cancer Social History (Updated 07/19/22 @ 09:03 by Shawn Hassan MD) Housing: House Alcohol intake: current Alcohol intake frequency: does not drink Patient Tobacco Use Status: Never used Tobacco e-Cigarette/Vaping Use: Never Used Second Hand Smoke Exposure: No Current occupational status: retired Cognitive needs: No Hearing needs: No Vision needs: Yes Questionnaire PHQ-9 Over the last 2 weeks, how often have you been bothered by any of the following problems? 1. Little interest or pleasure in doing things: not at all 2. Feeling down, depressed, or hopeless: not at all 3. Trouble falling or staying asleep, or sleeping too much: not at all 4. Feeling tired or having little energy: not at all 5. Poor appetite or overeating: not at all 6. Feeling bad about yourself - or that you are a failure or have let yourself or your family down: not at all 7. Trouble concentrating on things, such as reading the newspaper or watching television: not at all 8. Moving or speaking so slowly that other people could have noticed. Or the opposite - being so fidgety or restless that you have been moving around a lot more than usual: not at all 9. Thoughts that you would be better off or of hurting yourself in some way: not at all Total score: 0 Depression Screening Interpretation: Negative Depression Screening Done: Yes Source: Developed by Drs. Lakhwinder Parker, Mariella Lambert, Scottie Haley and colleagues, with an educational conor from [employer]. Thrive Questionnaire Date Thrive assessed: 11/02/23 I am a: Patient What is your living situation today?: I have a steady place to live Within the past 12 months, did the food you bought not last and you didn't have the money to get more?: Never true Within the past 12 months, did you worry whether your food would run out before you got money to buy more?: Never true Do you have trouble paying for medicines?: No Do you have trouble getting transportation to medical appointments?: No Do you have trouble paying your heating and electricity bill?: No Do you have trouble taking care of your child, family member or friend?: No Do you have trouble with day-to-day activities such as bathing, preparing meals, shopping, managing finances, etc.?: No Are you currently unemployed and looking for a job?: No Are you interested in more education?: No Currently or been in a relationship where the following occur: No concerns reported THRIVE Score: 0 AUDIT C Alcohol Use Questionnaire (AUDIT-C) 1. How often do you have a drink containing alcohol?: 2-4 times a month 2. How many drinks containing alcohol do you have on a typical day when you are drinking?: 1 or 2 3. How often do you have six or more drinks on one occasion?: Never Total Score: 2 NICK-7 AMB Questionnaire NICK-7 Date NICK - 7 assessed: 11/02/23 Feeling nervous, anxious, or on edge: 0 = Not at all Not being able to stop or control worryin = Not at all Worrying too much about different things: 0 = Not at all Trouble relaxin = Not at all Being so restless that it is hard to sit still: 0 = Not at all Becoming easily annoyed or irritable: 0 = Not at all Feeling afraid as if something awful might happen: 0 = Not at all Total NICK-7 score (0-4 normal; 5-9 mild; 10-14 moderate; 15-21 severe): 0 Source: Developed by Drs. Lakhwinder Parker, Mariella Lambert, Scottie Haley and colleagues, with an educational conor from [employer]. Physical exam (Primary Care) Tobacco/Smoking Status: Tobacco use Status Tobacco use date assessed 11/02/23 11/02/23 08:53 Patient Tobacco Use Status Never used Tobacco 11/02/23 08:53 e-Cigarette/Vaping Use Never Used 11/02/23 08:53 PHQ-9: PHQ-9 Score PHQ-9: Total score 0 11/02/23 08:53 Depression Screening Interpretation: Negative Thrive Assessment: Date of Thrive Assessment Date Thrive assessed 11/02/23 11/02/23 08:53 Currently or been in a relationship where the following occur: No concerns reported Telehealth Telehealth Telehealth Platform: Telephone Location of provider rendering services: practice address Location of patient: address on file Patient Identification confirmed using: Name, : Yes Telehealth method: voice only Patient verbally consented to treatment: Yes Patient verbally consented to billing insurance company: Yes Patient informed of any privacy concerns related to visit: Yes Minutes spent on Phone/Video with Pt.: 15 Assessment and Plan Assessment & Plan (1) Cough: Code(s): R05.9 - Cough, unspecified Plan: upper respiratory infection. Because of the cough occurring for a month a chest x-ray is requested. Patient is given a nasal spray to help with the nasal congestion to use 2 sprays each nostril once a day and advised to get Tessalon Perles to help symptomatic treatment of cough. Orders: Orders XR chest 2V Today R05.9 - Cough, unspecified Medications: New benzonatate 200 mg PO BID-TID PRN 20 caps 0RF cough R05.9 - Cough, unspecified fluticasone propionate 50 mcg/actuation (Flonase Allergy Relief) administer into each nostril 2 sprays intranasal DAILY 16 grams 0RF R05.9 - Cough, unspecified Coding Level of Care Code Tele Est Pt Level 3 (49864) Diagnoses Cough R05.9
== END 2023-11-02 11:17 | disposition home or self-care (01) ==
LOC: HO.HMGH 08:51
PROVIDERS: PCP Internal Medicine; Visit Provider Internal Medicine
DX: R05.9 Cough, unspecified (principal)
CPT/HCPCS: 99442

== ENCOUNTER 2023-11-03 12:50 | Outpatient (REF) | payer BC, SELFPAY ==
--- NOTE | ~2023-11-03 | XR_ITS ---
EXAMINATION: XR CHEST CLINICAL INFORMATION: Cough. COMPARISON: CTA chest dated 11/27/2020. TECHNIQUE: 2 views of the chest were obtained. FINDINGS: The lungs are clear. The cardiomediastinal silhouette is normal in size. There is no pleural effusion or pneumothorax. No acute osseous abnormality. XR/XR chest 2V IMPRESSION: No acute cardiopulmonary findings.
== END 2023-11-03 12:51 | disposition home or self-care (01) ==
LOC: HO.XRAY 12:50
PROVIDERS: PCP Internal Medicine; Visit Provider Internal Medicine
DX: R05.9 Cough, unspecified (principal)
CPT/HCPCS: 71046

== ENCOUNTER 2024-08-01 15:53 | Outpatient (AMB) | payer BC, SELFPAY ==
--- NOTE | 2024-08-01 16:16 | A.OFFPC_ITS ---
Vital Signs 08/01/24 16:33 Height 5 ft 6 in Weight 161 lb 6 oz BMI 26.0 BP 118/72 Blood Pressure Location Lt brachial Position Sitting Pulse 60 Pulse Source Pulse Oximeter Pulse Oximetry (%) 97 Oxygen Delivery Method Room Air Intake Visit Reasons: ANNUAL EXAM Exercise Equipment Repair Technician Required: No Accompanied by: Self / Same As Patient Allergies No Known Allergies Allergy (Verified 08/01/24 16:16) Medication List - Last Reconciled 08/01/24 by Shawn Hassan MD apple cider vinegar mg PO ascorbate calcium (vitamin C) 500 mg PO DAILY ascorbic acid-collagen 30-833.3 mg (Collagen Skin Renewal) tabs PO coffee extract (Green Coffee [place]orton) mg PO cyanocobalamin (vitamin B-12) 1,000 mcg PO DAILY ferrous sulfate (Feosol) 325 mg PO .3x a week multivitamin (One-A-Day Essential tablet) 1 tab PO DAILY [Oscal PO .6 days a week] Tobacco use date assessed: 08/01/24 Fall risk assessment: No Falls in past year Last assessed Fall Risk: 08/01/24 Dental Screening Dental Screen Date: 08/01/24 Did you have a dental visit in the last 12 months?: Yes Did you have a dental problem in the last 6 months where you did not have access to dental care?: No Was dental information given to patient?: Patient has dentist [facility] Medical History (Updated 11/02/23 @ 09:03 by Shawn Hassan MD) Impaired glucose tolerance Fracture of distal end of fibula Hypercholesterolemia Overweight Surgical History History of mandibular surgery Family History Father No problems noted. Mother No problems noted. Brother Prostate cancer Social History (Updated 08/01/24 @ 16:47 by Shawn Hassan MD) Housing: House Alcohol intake: current Alcohol intake frequency: does not drink Comment: 2 x a years 2-3 drinks Patient Tobacco Use Status: Never used Tobacco e-Cigarette/Vaping Use: Never Used Second Hand Smoke Exposure: No Current occupational status: retired Cognitive needs: No Hearing needs: No Vision needs: Yes Questionnaire PHQ-9 Over the last 2 weeks, how often have you been bothered by any of the following problems? 1. Little interest or pleasure in doing things: not at all 2. Feeling down, depressed, or hopeless: not at all 3. Trouble falling or staying asleep, or sleeping too much: not at all 4. Feeling tired or having little energy: not at all 5. Poor appetite or overeating: not at all 6. Feeling bad about yourself - or that you are a failure or have let yourself or your family down: not at all 7. Trouble concentrating on things, such as reading the newspaper or watching television: not at all 8. Moving or speaking so slowly that other people could have noticed. Or the opposite - being so fidgety or restless that you have been moving around a lot more than usual: not at all 9. Thoughts that you would be better off or of hurting yourself in some way: not at all Total score: 0 Depression Screening Interpretation: Negative Depression Screening Done: Yes 77513 - PHQ-9 Billing: Yes Source: Developed by Drs. Lakhwinder Parker, Mariella Lambert, Scottie Haley and colleagues, with an educational conor from [employer]. Thrive Questionnaire Date Thrive assessed: 08/01/24 I am a: Patient What is your living situation today?: I have a steady place to live Within the past 12 months, did the food you bought not last and you didn't have the money to get more?: Never true Within the past 12 months, did you worry whether your food would run out before you got money to buy more?: Never true Do you have trouble paying for medicines?: No Do you have trouble getting transportation to medical appointments?: No Do you have trouble paying your heating and electricity bill?: No Do you have trouble taking care of your child, family member or friend?: No Do you have trouble with day-to-day activities such as bathing, preparing meals, shopping, managing finances, etc.?: No Are you currently unemployed and looking for a job?: No Are you interested in more education?: No Please select the resources that you would like help with: None Currently or been in a relationship where the following occur: No concerns reported THRIVE Score: 0 AUDIT C Alcohol Use Questionnaire (AUDIT-C) 1. How often do you have a drink containing alcohol?: Monthly or less 2. How many drinks containing alcohol do you have on a typical day when you are drinking?: 1 or 2 3. How often do you have six or more drinks on one occasion?: Never Total Score: 1 NICK-7 AMB Questionnaire NICK-7 Date NICK - 7 assessed: 08/01/24 Feeling nervous, anxious, or on edge: 0 = Not at all Not being able to stop or control worryin = Not at all Worrying too much about different things: 0 = Not at all Trouble relaxin = Not at all Being so restless that it is hard to sit still: 0 = Not at all Becoming easily annoyed or irritable: 0 = Not at all Feeling afraid as if something awful might happen: 0 = Not at all Total NICK-7 score (0-4 normal; 5-9 mild; 10-14 moderate; 15-21 severe): 0 Source: Developed by Drs. Lakhwinder Parker, Mariella Lambert, Scottie Haley and colleagues, with an educational conor from [employer]. NICK-7 Assessment Billing NICK-7 Assessment Tool: NICK-7 Assessment 07509 Review of Systems Const Denies poor appetite and Denies weakness Eyes Denies no additional complaints ENT Reports Normal hearing present, Denies dizziness, Denies nasal congestion, Denies tinnitus and Denies sore throat Card Denies chest pain, Denies syncope, Denies rapid heart rate and Denies dyspnea Resp Denies cough and Denies dyspnea GI Denies change in stool character, Reports constipation, Denies diarrhea, Denies nausea and Denies vomiting Denies urinary frequency, Denies difficulty voiding and Denies dysuria Neuro Reports Normal hearing present, Denies confusion, Denies dizziness, Denies syncope and Denies weakness Psych Denies confusion Physical exam (Primary Care) Vital Signs: Last Vital Signs Pulse 60 08/01/24 16:33 BP 118/72 08/01/24 16:33 Pulse Ox 97 08/01/24 16:33 Oxygen Delivery Method Room Air 08/01/24 16:33 BMI result Body Mass Index 26.0 Tobacco/Smoking Status: Tobacco use Status Tobacco use date assessed 08/01/24 08/01/24 16:17 Patient Tobacco Use Status Never used Tobacco 08/01/24 16:47 e-Cigarette/Vaping Use Never Used 08/01/24 16:47 PHQ-9: PHQ-9 Score PHQ-9: Total score 0 08/01/24 16:37 Depression Screening Interpretation: Negative Thrive Assessment: Date of Thrive Assessment Date Thrive assessed 08/01/24 08/01/24 16:17 Currently or been in a relationship where the following occur: No concerns reported Const General: No confusion Orientation/consciousness: No confusion HENMT Head: Yes normocephalic Ears: external ears normal and TM's normal bilaterally Face and sinus: Yes normal facial exam Mouth: moist mucous membranes Throat: Yes tonsils normal Eyes Conjunctivae: conjunctivae normal Pupils: Equal, round and reactive pupils present and Pupil accommodation reflex normal Direct Ophthalmoscopy: normal light reflex Neck Neck: No lymphadenopathy Thyroid: Thyroid normal Chest Chest palpation & inspection: normal inspection of the chest Resp Effort & Inspection: normal respiratory effort and no audible wheezes Auscultation: clear to auscultation bilaterally, no crackles, no wheezes and lung sounds not diminished Cardio Rate: regular rate Rhythm: regular rhythm Peripheral pulses: radial pulses present and dorsalis pedis present GI Palpation (GI): no masses Auscultation: normal bowel sounds and normoactive bowel sounds Rectal Exam - Female: deferred Skin General skin exam: no rashes or lesions noted Rashes: no rashes Neuro General: No confusion Cranial nerves: Yes Equal, round and reactive pupils present and Yes Normal hearing present Cognition (Neuro): normal cognition Gait exam (Neuro): Normal gait present Motor exam (neuro): 5/5 motor strength present throughout Deep tendon reflexes (DTR's): Right brachioradialis reflex intensity grade: 2+, Left brachioradialis reflex intensity grade: 2+, Right patellar reflex intensity grade: 2+ and Left patellar reflex intensity grade: 2+ Extrem General: No edema Coding Level of Care Code Est Pt Prev Care >65y(12867) Diagnoses Annual physical exam Z00.00 Hypercholesterolemia E78.00 Overweight E66.3 Impaired glucose tolerance R73.02 Additional Codes NICK-7 Assessment Billing - NICK-7 Assessment Tool: NICK-7 Assessment 10064 ([id number]) PHQ-9 - 79784 - PHQ-9 Billing: Yes ([id number]) Assessment & Plan Assessment & Plan (1) Annual physical exam: Code(s): Z00.00 - Encounter for general adult medical examination without abnormal findings Category: Medical Plan: Patient is advised to eat healthy, keep well hydrated, keep active and have adequate sleep. (2) Hypercholesterolemia: Code(s): E78.00 - Pure hypercholesterolemia, unspecified Category: Medical Plan: Avoid fried foods, chicken skin, eggs, butter margarine, pastries and meat. Be it pork or beef they have a lot of cholesterol (3) Overweight: Code(s): E66.3 - Overweight Category: Medical Plan: Diet and exercise (4) Impaired glucose tolerance: Code(s): R73.02 - Impaired glucose tolerance (oral) Category: Medical Plan: Decrease the amount of carbohydrate intake, pasta, bread, rice and potatoes are all sugar and that is aside from all the sweet stuff, remember that fruits are good but they are Sweet also. Plan History of Present Illness The patient is a 69-year-old female presenting for a wellness visit. Histories relevant to the current visit include impaired glucose tolerance and hypercholesterolemia with an LDL measurement reported as 118 mg/dL in July 2022. She also has osteopenia with a historical reluctance to proceed with mammograms, colonoscopies, and further bone density evaluations. Her regular physical activity is notable for rounding out her day through active management of her [id number] twin granddaughters. Social habits impacting health include a choice against recreational and tobacco use, and minimal alcohol consumption. Her current medication regimen consists of supplements such as vitamin C, collagen, vitamin B12, iron, and Oscal, with adherence to taking them regularly or six times a week. She discontinued using coffee recently in favor of water intake. Since the last visit, her blood pressure management indicates maintenance without medication, and she remains proactive about her physical activity and diet, factors aiding in health promotion and maintenance. Health Maintenance - Patient refuses regular mammograms, colonoscopies, and bone density follow-up tests. - Active lifestyle involving care for grandchildren emphasized for health nd javan. - Dietary management includes drinking water and avoidance of coffee. - Vitamin and mineral supplementation includes vitamin C, collagen, vitamin B12, iron, and Oscal. - No use of tobacco or recreational drugs; minimal alcohol consumption during social events. - Adherence to routine blood work check-ups with the last done in July 2022 showing normal results including an LDL of 118 mg/dL. Social History - Engaged in daily activities involving childcare for twin granddaughters. - Intake of water preferred over coffee for hydration. - Occasional social alcohol consumption, typically during celebrations. - Nonsmoker and denies use of recreational drugs. - No employment details discussed. - Adheres to dietary supplements like vitamin C, collagen, B12, iron, and Oscal. Review of Systems - Respiratory: Denies coughing, wheezing, and shortness of breath. - Cardiovascular: Denies chest pain, palpitations, or dizziness. - Gastrointestinal: Denies nausea, vomiting, constipation, diarrhea. - Genitourinary: Reports waking 1-2 times a night to urinate. - Musculoskeletal: Denies recent fractures or joint pains, history of an arm fracture in June 2021. - Neurological: Denies dizziness, fainting. - Dermatological: Denies rashes, except for occasional heat rash on the back. - Ophthalmology: Denies vision changes or recent eye examinations. Physical Exam General: Cooperative, healthy appearing, comfortable, no acute distress and well developed Orientation: Patient oriented x3 Limitations: No limitations Head: Normal to inspection Ears: Hearing grossly normal bilaterally Nose: Normal external nose present Face and sinus: Normal facial exam Eyes: Appearance normal, both eyes and all related structures Neck: Normal visual inspection and Yes full ROM Respiratory: Normal respiratory effort and able to speak in complete sentences. Clear to auscultation bilaterally Cardiovascular: Regular rate and rhythm. Normal S1 and S2 GI: Normal to inspection. Soft to palpation and nontender Skin: No rashes or lesions noted, except for occasional heat rash on the back Neuro: Patient oriented x3 Extremities: Normal to inspection Results - Labs: July 2022 blood work normal, LDL 118 mg/dL. - Imaging: October 2023 chest x-ray negative regarding cough evaluation. Plan I discussed the patient's decision to refrain from common screenings such as mammograms, colonoscopies, and bone density evaluations owing to personal preferences while emphasizing the diagnostic value of these tests. Her wellness plan includes maintaining an active lifestyle and engaging with her grandchildren, important for overall health. Dietary considerations remain a point of focus, especially concerning her impaired glucose tolerance and hypercholesterolemia. Current supplementation with vitamins and minerals will continue, supporting her overall health without introducing new pharmacotherapies at this time. Continuation of periodic wellness check-ups is encouraged. Patient was informed and verbally consented to the use of an ambient scribe for clinic note documentation during this visit. Discussion Notes During our discussion, I informed the patient about the risks of not undergoing regular screenings like mammograms and colonoscopies, emphasizing the early detection benefits. We discussed how her dedicated involvement with her grandchildren allows for physical activity contributing significantly to her health maintenance. I reiterated the importance of hydration and a balanced diet, especially given her impaired glucose tolerance and LDL cholesterol levels. We also addressed her supplement regimen, ensuring her nutritional requirements align with her health goals. I encouraged continued lifestyle modifications that bolster her cardiovascular health and metabolic function. Patient Instructions - Continue engaging in daily physical activities while supervising your grandchildren. - Maintain hydration predominantly with water and minimize coffee intake. - Follow your supplement regimen six days a week, including vitamin C, collagen, B12, and iron. - Monitor occasional alcohol intake, limiting consumption to social events only. - Avoid tobacco and recreational drugs. - Adhere to a balanced, low-cholesterol diet. - Schedule regular check-ups and communicate any new health issues.
[2024-08-01 16:33] VITALS: BP 118/72; PULSE 60; O2SAT 97; BMI 26.0
== END 2024-08-01 16:57 | disposition home or self-care (01) ==
LOC: HO.HMCH 15:54
PROVIDERS: PCP Internal Medicine; Visit Provider Internal Medicine
DX: Z00.00 Encounter for general adult medical examination without abnormal findings (principal); E78.00 Pure hypercholesterolemia, unspecified; E66.3 Overweight; R73.02 Impaired glucose tolerance (oral)

== ENCOUNTER → 2024-08-01 15:53 | Outpatient (BNVA) | payer BC, SELFPAY | PROVIDERS: PCP Internal Medicine; Visit Provider Internal Medicine | DX: Z00.00 Encounter for general adult medical examination without abnormal findings (principal); E78.00 Pure hypercholesterolemia, unspecified; E66.3 Overweight; Z68.26 Body mass index [BMI] 26.0-26.9, adult; R73.02 Impaired glucose tolerance (oral) | CPT/HCPCS: 96127 ==